=== PATIENT | male | born 1955 | race Caucasian/White ===

== ENCOUNTER → 2018-12-29 14:10 | Outpatient (CLI) | payer MEDICAID, SELFPAY ==
[2018-12-29 14:52] LABS: Basophils # 0.1 K/mm3 (0-0.2); Basophils % 0.7 % (0.1-2.0); Eosinophils # 0.2 K/mm3 (0.0-0.4); Eosinophils % 1.8 % (0.1-12.0); Hematocrit 54.9 % (42.0-52.0); Lymphocytes # 2.2 K/mm3 (0.7-4.5); Lymphocytes % 20.8 % (10-50); Mean Corpuscular HGB Conc 33.9 g/dL (31.8-35.4); Mean Corpuscular Hemoglobin 37.9 pg (27.0-31.2); Mean Platelet Volume 7.8 fl (7.4-10.4); Monocytes # 0.9 K/mm3 (0.1-1.0); Monocytes % 8.9 % (1.7-9.3); Neutrophils # 7.1 K/mm3 (1.8-7.8); Neutrophils % 67.8 % (37.0-80.0); Platelet Count 364 K/mm3 (142-424); Red Blood Count 4.91 M/mm3 (4.60-6.20); White Blood Count 10.5 K/mm3 (4.8-10.8)
[2018-12-29 14:55] LABS: Alanine Aminotransferase 25 U/L (12-78); Albumin/Globulin Ratio 1.1 (1.1-1.8); Alkaline Phosphatase 82 U/L (46-116); Anion Gap 20.4 mEq/L (5-15); Aspartate Amino Transferase 25 U/L (15-37); Bilirubin,Total 0.4 mg/dL (0.2-1.0); Blood Urea Nitrogen 6 mg/dL (7-18); Calcium 9.4 mg/dL (8.5-10.1); Carbon Dioxide 22 mmol/L (21.0-32.0); Chloride 89 mmol/L (98-107); Chol/HDL Ratio 4.7 (1-3.5); Cholesterol 261 mg/dL (140-200); Creatinine,Serum 0.62 mg/dL (0.70-1.30); Estimated Glomerular Filt Rate 131 ml/min (>60); GFR (African American) 159 ML/MIN (>60); Globulin 3.8 gm/dl (1.3-3.2); Glucose 77 mg/dL (74-106); HDL Cholesterol 56 mg/dL (27-67); LDL Cholesterol 180 mg/dL (0-130); Potassium 4.4 mmoL/L (3.5-5.1); Sodium 127 mmol/L (136-145); T4 (Thyroxine) 8.1 ug/dl (4.7-13.3); Thyroid Stimulating Hormone 1.12 uIU/ml (0.358-3.740); Total Protein,Serum 7.8 gm/dL (6.4-8.2); Triglycerides 126 mg/dL (30-200); VLDL Cholesterol 25 mg/dL (0-40)
[2018-12-29 14:56] LABS: Hemoglobin 18.6 g/dL (14.1-18.0)
[2018-12-31 12:57] LABS: PSA, Free 0.14 ng/mL; Prostate Specific Ag 1.5 ng/mL (0.0-4.0); Vitamin B12 278 pg/mL (232-1245)
[2018-12-31 13:07] LABS: Folate 11.4 ng/mL (>3.0)
[2019-01-01 07:24] LABS: Vitamin D 25 Hydroxy 7.2 ng/mL (30.0-100.0)
== END ==
PROVIDERS: Visit Provider Nurse Practitioner Family
DX: R53.83 Other fatigue (principal); Q38.3 Other congenital malformations of tongue; E55.9 Vitamin D deficiency, unspecified
CPT/HCPCS: 80053; 80061; 82607; 82652; 82746; 84153; 84154; 84436; 84443; 85025

== ENCOUNTER → 2019-01-14 13:32 | Outpatient (CLI) | payer MEDICAID, SELFPAY ==
[2019-01-14 13:43] LABS: Basophils # 0.1 K/mm3 (0-0.2); Basophils % 0.7 % (0.1-2.0); Eosinophils # 0.4 K/mm3 (0.0-0.4); Eosinophils % 4.2 % (0.1-12.0); Hematocrit 52.3 % (42.0-52.0); Hemoglobin 17.7 g/dL (14.1-18.0); Lymphocytes # 2.1 K/mm3 (0.7-4.5); Lymphocytes % 20.4 % (10-50); Mean Corpuscular HGB Conc 33.9 g/dL (31.8-35.4); Mean Corpuscular Hemoglobin 37.8 pg (27.0-31.2); Mean Corpuscular Volume 111.4 fl (80-94); Mean Platelet Volume 7.5 fl (7.4-10.4); Monocytes % 9.7 % (1.7-9.3); Neutrophils # 6.6 K/mm3 (1.8-7.8); Platelet Count 324 K/mm3 (142-424); Red Cell Distribution Width 12.8 % (11.5-17.5); White Blood Count 10.2 K/mm3 (4.8-10.8)
[2019-01-14 14:13] LABS: Anion Gap 16.7 mEq/L (5-15); Blood Urea Nitrogen 6 mg/dL (7-18); Calcium 9.5 mg/dL (8.5-10.1); Carbon Dioxide 28 mmol/L (21.0-32.0); Chloride 98 mmol/L (98-107); Creatinine,Serum 0.64 mg/dL (0.70-1.30); Estimated Glomerular Filt Rate 127 ml/min (>60); GFR (African American) 153 ML/MIN (>60); Glucose 97 mg/dL (74-106); Potassium 4.7 mmoL/L (3.5-5.1); Sodium 138 mmol/L (136-145)
== END ==
PROVIDERS: Visit Provider Emergency Medicine
DX: I10 Essential (primary) hypertension (principal)
CPT/HCPCS: 80048; 85025

== ENCOUNTER → 2020-03-22 13:57 | Outpatient (CLI) | payer MEDICAID, SELFPAY ==
[2020-03-22 14:33] LABS: Chloride 94 mmol/L (98-107)
[2020-03-22 14:34] LABS: Potassium 4.7 mmoL/L (3.5-5.1); Sodium 129 mmol/L (136-145)
[2020-03-22 14:36] LABS: Alanine Aminotransferase 31 U/L (12-78); Albumin Level 4.2 g/dl (3.5-5.0); Albumin/Globulin Ratio 1.4 (1.1-1.8); Alkaline Phosphatase 67 U/L (38-126); Aspartate Amino Transferase 42 U/L (17-59); Bilirubin,Total 0.6 mg/dl (0.2-1.3); Total Protein,Serum 7.2 g/dl (6.3-8.2)
[2020-03-22 14:37] LABS: Anion Gap 13.7 mEq/L (5-15); Carbon Dioxide 26 mmol/L (22.0-30.0); Chol/HDL Ratio 2.3 (1-3.5); Cholesterol 155 mg/dl (140-200); HDL Cholesterol 67 mg/dl (40-60); Triglycerides 69 mg/dl (30-150); VLDL Cholesterol 14 mg/dL (0-40)
[2020-03-22 14:54] LABS: T4 (Thyroxine) 6.9 ug/dl (5.53-11.0)
[2020-03-22 15:02] LABS: Basophils # 0.1 K/mm3 (0-0.2); Basophils % 0.9 % (0.1-2.0); Eosinophils # 0.5 K/mm3 (0.0-0.4); Hematocrit 48.1 % (42.0-52.0); Hemoglobin 16.6 g/dL (14.1-18.0); Lymphocytes % 25.5 % (10-50); Mean Corpuscular HGB Conc 34.5 g/dL (31.8-35.4); Mean Corpuscular Hemoglobin 37.1 pg (27.0-31.2); Mean Corpuscular Volume 107.8 fl (80-94); Mean Platelet Volume 8.2 fl (7.4-10.4); Monocytes # 0.9 K/mm3 (0.1-1.0); Monocytes % 11.5 % (1.7-9.3); Neutrophils # 4.5 K/mm3 (1.8-7.8); Neutrophils % 56.1 % (37.0-80.0); Platelet Count 289 K/mm3 (142-424); Red Blood Count 4.46 M/mm3 (4.60-6.20); Red Cell Distribution Width 12.9 % (11.5-17.5)
[2020-03-22 15:08] LABS: Thyroid Stimulating Hormone 2.76 uIU/mL (0.465-4.68)
[2020-03-22 15:37] LABS: Blood Urea Nitrogen 9 mg/dl (9-20); Calcium 9.6 mg/dl (8.4-10.2); Estimated Glomerular Filt Rate 114 ml/min (>60); GFR (African American) 138 ML/MIN (>60); Glucose 99 mg/dl (74-100)
[2020-03-22 15:48] LABS: Direct LDL Cholesterol 86.41 mg/dL (100-129)
[2020-03-22 19:04] LABS: Prostate Specific Ag Screen 1.4 ng/ml (0.0-4.0)
[2020-03-29 08:40] LABS: Testosterone, Total, LC/MS 268.2 ng/dL (264.0-916.0); Testosterone,Free 7.3 pg/mL (6.6-18.1)
== END ==
PROVIDERS: Visit Provider Nurse Practitioner Family
DX: R53.83 Other fatigue (principal); N52.9 Male erectile dysfunction, unspecified; Z79.899 Other long term (current) drug therapy
CPT/HCPCS: 80053; 80061; 84402; 84403; 84436; 84443; 85025; G0103

== ENCOUNTER → 2020-03-31 13:29 | Outpatient (CLI) | payer MEDICAID, SELFPAY ==
[2020-04-01 09:21] LABS: Vitamin B12 253 pg/mL (232-1245)
[2020-04-01 11:31] LABS: Folate 14.9 ng/mL (>3.0)
== END ==
PROVIDERS: Visit Provider Nurse Practitioner Family
DX: D64.9 Anemia, unspecified (principal)
CPT/HCPCS: 82607; 82746